=== PATIENT | male | born 1960 | race Caucasian/White ===

== ENCOUNTER 2020-09-06 08:01 | Day surgery (SDC) | payer BC ==
[2020-09-02 12:30] VITALS: BMI 26.6
[2020-09-06] MEDS ORDERED: PROPOFOL 20 ML ONE ×5 (09:40)
[2020-09-06] MEDS ORDERED: LIDOCAINE HCL/PF 2% SDV 5ML VIAL ONE (09:40)
[2020-09-06 10:32] VITALS: BP 122/76; PULSE 70; TEMP 97.1
== END 2020-09-06 10:32 | disposition home or self-care (01) ==
LOC: FASU-ENDO 08:01
PROVIDERS: ATTEND Internal Medicine Gastroenterology
PROC: 0DJD8ZZ Inspection of Lower Intestinal Tract, Via Natural or Artificial Opening Endoscopic (ICD-10-PCS; principal; 2020-09-06 09:40)
DX: Z12.11 Encounter for screening for malignant neoplasm of colon (principal); K57.30 Diverticulosis of large intestine without perforation or abscess without bleeding